=== PATIENT | female | born 1960 | race Caucasian/White ===

== ENCOUNTER 2018-10-10 14:25 | Inpatient (IN) | payer BC ==
[~2018-10-10] VITALS: Ht 165.1 cm; Wt 61.4 kg
[2018-10-10] MEDS ORDERED: CALC1TAB30 PO (14:34)
[2018-10-10] MEDS ORDERED: BACT800T5 PO (14:34)
[2018-10-10] MEDS ORDERED: GNP250TA9 PO (14:34)
[2018-10-10] MEDS ORDERED: FLUO20CA19 PO (14:34)
[2018-10-10] MEDS ORDERED: CBD OIL SL (14:34)
[2018-10-10] MEDS ORDERED: CEPH500C PO (14:34)
[2018-10-10] MEDS ORDERED: WELLTAB38 PO (14:34)
[2018-10-10 15:22] LABS: BASO # 0.1 10^3/uL (0.0-0.2); BASO % 1.1 % (0.0-1.0); EOS # 0.2 10^3/uL (0.0-0.50); EOS % 2.9 % (0.0-3.0); HEMATOCRIT 33.9 % (36.0-47.0); HEMOGLOBIN 11.4 g/dl (12.0-15.5); LYMPH # 1.4 10^3/uL (1.5-4.5); LYMPH % 25.4 % (24.0-44.0); MEAN CORPUSCULAR HEMOGLOBIN 33.3 pg (27.0-33.0); MEAN CORPUSCULAR HGB CONC 33.6 g/dl (32.0-36.5); MEAN CORPUSCULAR VOLUME 99.1 fl (80.0-96.0); MONO # 0.8 10^3/uL (0.0-0.8); MONO % 13.7 % (0.0-5.0); NEUTROPHILS # 3.1 10^3/uL (1.8-7.7); NEUTROPHILS % 56.7 % (36.0-66.0); PLATELET COUNT, AUTOMATED 275 10^3/uL (150-450); RED BLOOD COUNT 3.42 10^6/uL (4.00-5.40); WHITE BLOOD COUNT 5.5 10^3/uL (4.0-10.0)
--- NOTE | 2018-10-10 15:36 | REP ---
Clinical: Trauma. Technique: AP, lateral, bilateral oblique and sunrise views. Findings: The osseous structures and joint spaces are intact and normal. There is no evidence for acute fracture or dislocation. No joint effusion is appreciated. Surrounding soft tissues are unremarkable. No subcutaneous emphysema or radiodense foreign body. Impression: Normal examination. Electronically Signed by Eduard Moreno MD 10/10/2018 03:28 P
[2018-10-10 15:38] LABS: BLOOD UREA NITROGEN 15 MG/DL (7-18); C REACTIVE PROTEIN QUANTITATIV 6.08 MG/DL (0.00-0.30); CARBON DIOXIDE LEVEL 24 MEQ/L (21-32); CHLORIDE LEVEL 105 MEQ/L (98-107); CREATININE FOR GFR 1.15 MG/DL (0.55-1.30); GLOMERULAR FILTRATION RATE 52.2 (>51); GLUCOSE, FASTING 88 MG/DL (70-100); POTASSIUM SERUM 3.9 MEQ/L (3.5-5.1); SODIUM LEVEL 138 MEQ/L (136-145)
--- NOTE | 2018-10-10 15:38 | REP ---
Clinical: Left knee pain and swelling. Technique: Neutral and frog lateral views of the left hip. Findings: Evidence for left hip arthroplasty with orthopedic hardware in satisfactory position. No acute fracture dislocation. Impression: No acute fracture or dislocation. Electronically Signed by Eduard Moreno MD 10/10/2018 03:30 P
--- NOTE | 2018-10-10 15:54 | REP ---
Clinical: Left lower extremity pain and swelling . Technique: Ulrich scale and color Doppler evaluation using linear high frequency transducer. Findings: Ultrasound examination of the left lower extremity deep venous structures from the common femoral vein to the popliteal vein demonstrates normal compressibility flow and wave patterns in response to respiration and augmentation. There is no evidence for deep venous thrombosis. Left groin nodes measuring up to 2.7 x 0.9 x 1.2 cm are appreciated. Ultrasound along the anterior rocha at the site of insect bite demonstrates a subcutaneous complex hypoechoic collection measuring 4.3 x 0.8 x 2.9 cm. Impression: 1. No evidence for deep venous thrombosis. 2. Complex collection in the subcutaneous tissue below the level of the presumed insect bite may reflect phlegmon/forming abscess or possible hematoma if there was an associated traumatic event. Electronically Signed by Eduard Moreno MD 10/10/2018 03:46 P
[2018-10-10 16:11] LABS: ERYTHROCYTE SEDIMENTATION RATE 56 mm/hr (0-30)
[2018-10-10 17:59] LABS: RHEUMATOID FACTOR QUANT < 10.0 IU/ML (<15.0); URIC ACID 3.9 MG/DL (2.6-6.0)
[2018-10-10] MEDS ORDERED: MAGN400T PO (18:04)
--- NOTE | 2018-10-10 18:12 | HPEPDOC ---
General Date of Admission Oct 10, 2018 at 17:55 Date of Service: Oct 10, 2018 Chief Complaint The patient is a 57-year-old female who presented to the emergency room with complaints of left leg, warmth, redness and tenderness History of Present Illness Patient is a 57-year-old female with a past medical history of cerebrovascular accident secondary to control pills 2008 who presented to the emergency room after she experienced progressive warmth, redness and swelling of her left leg. Patient reports that last Friday she was working in the garden on her knees and that evening she began to experience left knee pain. Patient noted that she began to progressively experience worsening redness, warmth and tenderness. She ultimately went to urgent care on Friday where she had received cephalexin and Bactrim. At that time, she noted to have a temperature of 100.4 Fahrenheit Despite remaining compliant with antibiotic therapy, patient continued to experience worsening redness, warmth and tenderness and came to the emergency room for further evaluation. Patient denies any fevers or chills. Patient denies any drainage from the site. She denies any bug bites. Patient has full range of motion of her knee and her ankle. Patient denies chest pain, shortness of breath, cough, headache, nausea, vomiting, abdominal pain, constipation, diarrhea or discomfort with urination. Patient reports her weight has been consistent in her appetite has been normal. Home Medications Scheduled Bupropion HCl (Wellbutrin Xl) 150 Mg Tab.er.24h, 150 MG PO DAILY, (Reported) Calcium Carbonate/Vitamin D3 (Calcium 500-Vit D3 200 Caplet) 1 Each Tablet, 1 TAB PO DAILY, (Reported) Cannabidiol (Cbd Oil) Btl, 1 DOSE SL ASDIRECTED, (Reported) Cephalexin (Cephalexin) 500 Mg Capsule, 500 MG PO QID, (Reported) FILLED 10/06/18 X 10 DAY SUPPLY Fluoxetine Hcl (Fluoxetine HCl) 20 Mg Capsule, 20 MG PO DAILY, (Reported) Magnesium Oxide (Magnesium Oxide) 400 Mg Tablet, 400 MG PO DAILY, (Reported) Sulfamethoxazole/Trimethoprim (Bactrim Ds Tablet) 1 Each Tablet, 1 TAB PO BID, (Reported) Allergies Coded Allergies: Penicillins (Verified Allergy, Unknown, RASH, 10/10/18) Past Medical History Medical History Cerebrovascular accident secondary to control pills in 2008 Surgical History Left total hip arthroplasty 2004 2 Closure of patent foramen ovale with a mesh in 2009 at [facility] in [place] Family History - Mother and father are both and had a history of hypertension Social History - Denies the use of tobacco or illicit drugs; patient reports social alcohol use - Denies recent travel or sick contacts - Lives in [place] - Occupation; day care aide Review of Systems Other systems 10 point review of systems complete, all negative otherwise stated in HPI Vital Signs - Vitals: BP 137/102, HR 78, RR 18, Sat 99%RA, Temp 98.3F - General: Lying in bed, No acute distress, Speaking in full sentences, AAOx3 - HEENT: NC, AT, PERRLA, EOMI - CVS: RRR, +S1S2, - Murmurs / rubs / gallops - Lungs: Fair air entry bilaterally, No appreciable wheezing / rales / rhonchi - Abdomen: Soft, Non-distended, Non-tender - Extremities: No lower extremity edema, No calf tenderness - Neuro: No focal motor or sensory deficit - Skin: Left leg with warmth, erythema and tenderness, no drainage noted Laboratory Data Labs 24H Laboratory Tests 2 10/10/18 15:17: Immature Granulocyte % (Auto) 0.2, White Blood Count 5.5, Red Blood Count 3.42L, Hemoglobin 11.4L, Hematocrit 33.9L, Mean Corpuscular Volume 99.1H, Mean Corpuscular Hemoglobin 33.3H, Mean Corpuscular Hemoglobin Concent 33.6, Red Cell Distribution Width 12.0, Platelet Count 275, Neutrophils (%) (Auto) 56.7, Lymphocytes (%) (Auto) 25.4, Monocytes (%) (Auto) 13.7H, Eosinophils (%) (Auto) 2.9, Basophils (%) (Auto) 1.1H, Neutrophils # (Auto) 3.1, Lymphocytes # (Auto) 1.4L, Monocytes # (Auto) 0.8, Eosinophils # (Auto) 0.2, Basophils # (Auto) 0.1, Nucleated Red Blood Cells % (auto) 0.0, Erythrocyte Sedimentation Rate 56H, Anion Gap 9, Glomerular Filtration Rate 52.2, Uric Acid 3.9, Blood Urea Nitrogen 15, Creatinine 1.15, Sodium Level 138, Potassium Level 3.9, Chloride Level 105, Carbon Dioxide Level 24, Calcium Level 9.0, C-Reactive Protein, Quantitative 6.08H, Rheumatoid Factor < 10.0 CBC/BMP Laboratory Tests 10/10/18 15:17 Red Blood Count 3.42 L, Mean Corpuscular Volume 99.1 H, Mean Corpuscular Hemoglobin 33.3 H, Mean Corpuscular Hemoglobin Concent 33.6, Red Cell Dis tribution Width 12.0, Neutrophils (%) (Auto) 56.7, Lymphocytes (%) (Auto) 25.4, Monocytes (%) (Auto) 13.7 H, Eosinophils (%) (Auto) 2.9, Basophils (%) (Auto) 1.1 H, Neutrophils # (Auto) 3.1, Lymphocytes # (Auto) 1.4 L, Monocytes # (Auto) 0.8, Eosinophils # (Auto) 0.2, Basophils # (Auto) 0.1, Calcium Level 9.0 Microbiology Microbiology 10/10/18 Blood Culture, Received Pending 10/10/18 Blood Culture, Received Pending Plan / VTE VTE Prophylaxis Ordered?: Yes Plan Plan Left leg, warmth, redness and tenderness - likely 2/2 left leg cellulitis - Patient presented to the emergency room after failing antibiotic therapy for her left leg cellulitis - Aged indicated that she began experiencing symptoms since Friday; and had started antibiotics on Friday - Remains afebrile and hemodynamically stable - No significant leukocytosis; elevation of CRP - Blood cultures pending; will check MRSA screen - Duplex ultrasound is negative for any blood clots; x-rays are negative for any acute findings - Will get CT of her left lower extremity to evaluate for joint involvement - Will start Ceftaroline for MRSA coverage Hx of CVA (2008) - Had reported that this was secondary to control pills - Currently not on an anti-platelet therapy Mood disorder - Will resume home medications DVT prophylaxis - Will start Heparin INGRID MONROE MD Oct 10, 2018 18:12
[2018-10-10] MEDS ORDERED: GABA-843 PO (18:15)
[2018-10-10] MEDS ORDERED: MAPA25TA PO (18:16)
[2018-10-10] MEDS ORDERED: ISOVUE-370 76% 100ML VIAL (Q9967) As Ordered ONE (18:21)
[2018-10-10] MEDS: NS 1,000 ML IV SCH (18:55)
[2018-10-10] MEDS: CEFTAROLINE FOSAMIL 600 MG in D5W MINI-BAG PLUS 50 ML IV SCH (19:56)
--- NOTE | 2018-10-10 19:56 | REPVR ---
EXAM: CT Left Lower Extremity With Contrast, Tibia and Fibula EXAM DATE/TIME: 10/10/2018 6:31 PM CLINICAL HISTORY: 57 years old, female; Cellulitis; Lower leg; Left; Additional info: L leg cellulitis TECHNIQUE: Imaging protocol: CT of the Left lower extremity with intravenous contrast was performed. Exam focused on the tibia and fibula. Coronal and sagittal reformatted images were created and reviewed. Radiation optimization: All CT scans at this facility use at least one of these dose optimization techniques: automated exposure control; mA and/or kV adjustment per patient size (includes targeted exams where dose is matched to clinical indication); or iterative reconstruction. Contrast material: ISOVUE 370; Contrast volume: 100 ml; Contrast route: IV; COMPARISON: CR Knee, complete LEFT 10/10/2018 3:22 PM FINDINGS: Bones/joints: No acute fracture or dislocation of the left lower extremity, as visualized. CT imaging of the left lower extremity was performed from the left knee to the left ankle. There is a minimal patellofemoral joint effusion. Soft tissues: There is soft tissue swelling of the left lower extremity. There is a loculated collection of fluid anterior to the anterior tibial tubercle and distal patellar tendon. This fluid collection measures approximately 2.0 x 0.7 x 3.8 cm. This is suggestive of an infrapatellar bursitis, although abscess is within the differential. Additional soft tissue swelling is seen anterior to the patella and patellar tendon. CT is suboptimal for the evaluation of ligaments, tendons, and menisci. Small fluid collections are identified adjacent to the popliteus muscle, typically representing ganglion cysts. No foci of gas are identified within the soft tissues of the left lower extremity. No abnormally enhancing mass is identified within the left lower extremity. IMPRESSION: 1. There is soft tissue swelling of the left lower extremity. 2. No acute fracture or dislocation of the left lower extremity, as visualized. 3. There is a loculated collection of fluid anterior to the anterior tibial tubercle and distal patellar tendon. This fluid collection measures approximately 2.0 x 0.7 x 3.8 cm. This is suggestive of an infrapatellar bursitis, although abscess is within the differential. Additional soft tissue swelling is seen anterior to the patella and patellar tendon. Clinical correlation is recommended. 4. Small fluid collections are identified adjacent to the popliteus muscle, typically representing ganglion cysts. 5. Additional findings described above. Electronically signed by: Theodore Delcid On 10/10/2018 19:56:17 PM
[2018-10-10 20:20] VITALS: BP 139/90
[2018-10-10] MEDS ORDERED: GABAPENTIN 300 MG CAP PO SCH (21:00)
[2018-10-10] MEDS: HEPARIN SOD (PORCINE) 5000 UNITS/ML VIAL SC SCH (22:12)
[2018-10-10] MEDS: ACETAMINOPHEN TAB 650MG DOSE (2X325MG) PO PRN (23:23)
[2018-10-10 23:49] VITALS: BP 133/83
[2018-10-11] MEDS: NS 1,000 ML IV SCH (04:16)
[2018-10-11] MEDS: HEPARIN SOD (PORCINE) 5000 UNITS/ML VIAL SC SCH (06:22)
[2018-10-11 07:55] LABS: BASO # 0.1 10^3/uL (0.0-0.2); BASO % 1.4 % (0.0-1.0); EOS # 0.2 10^3/uL (0.0-0.50); EOS % 5.2 % (0.0-3.0); HEMATOCRIT 32.5 % (36.0-47.0); LYMPH # 1.2 10^3/uL (1.5-4.5); LYMPH % 26.7 % (24.0-44.0); MEAN CORPUSCULAR HGB CONC 33.8 g/dl (32.0-36.5); MEAN CORPUSCULAR VOLUME 100.3 fl (80.0-96.0); MONO # 0.5 10^3/uL (0.0-0.8); MONO % 12.3 % (0.0-5.0); NEUTROPHILS # 2.4 10^3/uL (1.8-7.7); NEUTROPHILS % 54.2 % (36.0-66.0); PLATELET COUNT, AUTOMATED 269 10^3/uL (150-450); RED BLOOD COUNT 3.24 10^6/uL (4.00-5.40); WHITE BLOOD COUNT 4.4 10^3/uL (4.0-10.0)
[2018-10-11 08:00] VITALS: BP 134/89
[2018-10-11] MEDS: CEFTAROLINE FOSAMIL 600 MG in D5W MINI-BAG PLUS 50 ML IV SCH (08:06)
[2018-10-11 08:14] LABS: BLOOD UREA NITROGEN 10 MG/DL (7-18); C REACTIVE PROTEIN QUANTITATIV 4.58 MG/DL (0.00-0.30); CALCIUM LEVEL 8.7 MG/DL (8.5-10.1); CARBON DIOXIDE LEVEL 26 MEQ/L (21-32); CHLORIDE LEVEL 109 MEQ/L (98-107); CREATININE FOR GFR 1.01 MG/DL (0.55-1.30); GLOMERULAR FILTRATION RATE > 60.0 (>51); GLUCOSE, FASTING 96 MG/DL (70-100); MAGNESIUM LEVEL 2.3 MG/DL (1.8-2.4); POTASSIUM SERUM 4.2 MEQ/L (3.5-5.1); SODIUM LEVEL 139 MEQ/L (136-145)
[2018-10-11] MEDS ORDERED: MAGNESIUM OXIDE 400 MG TAB (MAG-OX) PO SCH (09:00)
[2018-10-11] MEDS ORDERED: buPROPion **XL** TABLET 150MG (WELLBUTRIN XL) PO SCH (09:00)
[2018-10-11] MEDS ORDERED: FLUoxetine 20 MG CAP PO SCH (09:00)
[2018-10-11] MEDS: ACETAMINOPHEN TAB 650MG DOSE (2X325MG) PO PRN (09:46)
[2018-10-11] MEDS ORDERED: CEFD300CAP PO (10:10)
[2018-10-11] MEDS ORDERED: CALC1TAB30 PO (10:10)
[2018-10-11] MEDS ORDERED: DOXY-350 PO (10:10)
--- NOTE | 2018-10-11 10:19 | DS.PDOC ---
Discharge Summary General Date of Admission Oct 10, 2018 at 17:55 Date of Discharge 10/11/2018 Discharge Summary PROCEDURES PERFORMED DURING STAY: [None]. ADMITTING DIAGNOSES / DISCHARGE DIAGNOSES: Left leg, warmth, redness and tenderness - likely 2/2 left leg cellulitis / bursitis, less likely 2/2 abscess Hx of CVA (2008) Mood disorder DVT prophylaxis COMPLICATIONS/CHIEF COMPLAINT: Left leg warmth / tenderness / swelling HISTORY OF PRESENT ILLNESS: Patient is a 57-year-old female with a past medical history of cerebrovascular accident secondary to control pills 2008 who presented to the emergency room after she experienced progressive warmth, redness and swelling of her left leg. Patient reports that last Friday she was working in the garden on her knees and that evening she began to experience left knee pain. Patient noted that she began to progressively experience worsening redness, warmth and tenderness. She ultimately went to urgent care on Friday where she had received cephalexin and Bactrim. At that time, she noted to have a temperature of 100.4 Fahrenheit. Despite remaining compliant with antibiotic therapy, patient continued to experience worsening redness, warmth and tenderness and came to the emergency room for further evaluation. Patient was admitted to hospitalist service for further evaluation and treatment HOSPITAL COURSE: Left leg, warmth, redness and tenderness - likely 2/2 left leg cellulitis - Patient presented to the emergency room after failing antibiotic therapy for her left leg cellulitis - Aged indicated that she began experiencing symptoms since Friday; and had started antibiotics on Friday - Remains afebrile and hemodynamically stable - No significant leukocytosis; elevation of CRP - Blood cultures pending; will check MRSA screen - Duplex ultrasound is negative for any blood clots; x-rays are negative for any acute findings - CT of her left lower extremity 10/10: 1. There is soft tissue swelling of the left lower extremity. 2. No acute fracture or dislocation of the left lower extremity, as visualized. 3. There is a loculated collection of fluid anterior to the anterior tibial tubercle and distal patellar tendon. This fluid collection measures approximately 2.0 x 0.7 x 3.8 cm. This is suggestive of an infrapatellar bursitis, although abscess is within the differential. Additional soft tissue swelling is seen anterior to the patella and patellar tendon. Clinical correlation is recommended. 4. Small fluid collections are identified adjacent to the popliteus muscle, typically representing ganglion cysts. 5. Additional findings described above. - Orthopedic surgery was consulted; no interventions planned at this time - Will discharge with Cefdinir and Doxycycline; s/p Ceftaroline - will continue for completion of antibiotic course - Will have outpatient follow up with PCP / Orthopedic surgery within 7 days Hx of CVA (2008) - Had reported that this was secondary to control pills - Currently not on an anti-platelet therapy Mood disorder - c/w home medications DVT prophylaxis - c/w Heparin DISCHARGE MEDICATIONS: Please see below. ALLERGIES: Please see below. PHYSICAL EXAMINATION ON DISCHARGE: Vitals (See below) General: Lying in bed, no acute distress, comfortable, AAOx3 HEENT: NC, AT CVS: RRR, +S1S2 Lungs: Fair air entry b/l, -w/r/r Abdomen: Soft, ND, NT Extremities: - Edema, - Calf tenderness Skin: Left leg erythema, warmth and tenderness has improved significantly; swelling below the left knee has improved compared to yesterday LABORATORY DATA: Please see below. ACTIVITY: [As tolerated]. DISCHARGE PLAN: Follow up with PCP locally and Dr. Abbasi within 7 days Remain compliant with treatment plan and medications Return to the ER if you experience any problems DISPOSITION: Home DISCHARGE CONDITION: [Stable]. TIME SPENT ON DISCHARGE: 35 minutes Vital Signs/I&Os Vital Signs Date Time Temp Pulse Resp B/P (MAP) Pulse Ox O2 Delivery O2 Flow Rate FiO2 10/11/18 08:00 97.7 67 14 134/89 (104) 98 10/10/18 17:25 Room Air I&O- Last 24 Hours up to 6 AM 10/11/18 06:00 Intake Total 2340 ml Output Total 900 ml Balance 1440 ml Laboratory Data Labs 24H Laboratory Tests 2 10/10/18 15:17: Immature Granulocyte % (Auto) 0.2, White Blood Count 5.5, Red Blood Count 3.42L, Hemoglobin 11.4L, Hematocrit 33.9L, Mean Corpuscular Volume 99.1H, Mean Corpuscular Hemoglobin 33.3H, Mean Corpuscular Hemoglobin Concent 33.6, Red Cell Distribution Width 12.0, Platelet Count 275, Neutrophils (%) (Auto) 56.7, Lymphocytes (%) (Auto) 25.4, Monocytes (%) (Auto) 13.7H, Eosinophils (%) (Auto) 2.9, Basophils (%) (Auto) 1.1H, Neutrophils # (Auto) 3.1, Lymphocytes # (Auto) 1.4L, Monocytes # (Auto) 0.8, Eosinophils # (Auto) 0.2, Basophils # (Auto) 0.1, Nucleated Red Blood Cells % (auto) 0.0, Erythrocyte Sedimentation Rate 56H, Anion Gap 9, Glomerular Filtration Rate 52.2, Uric Acid 3.9, Blood Urea Nitrogen 15, Creatinine 1.15, Sodium Level 138, Potassium Level 3.9, Chloride Level 105, Carbon Dioxide Level 24, Calcium Level 9.0, C-Reactive Protein, Quantitative 6.08H, Rheumatoid Factor < 10.0 10/11/18 07:37: Immature Granulocyte % (Auto) 0.2, White Blood Count 4.4, Red Blood Count 3.24L, Hemoglobin 11.0L, Hematocrit 32.5L, Mean Corpuscular Volume 100.3H, Mean Corpuscular Hemoglobin 34.0H, Mean Corpuscular Hemoglobin Concent 33.8, Red Cell Distribution Width 12.0, Platelet Count 269, Neutrophils (%) (Auto) 54.2, Lymphocytes (%) (Auto) 26.7, Monocytes (%) (Auto) 12.3H, Eosinophils (%) (Auto) 5.2H, Basophils (%) (Auto) 1.4H, Neutrophils # (Auto) 2.4, Lymphocytes # (Auto) 1.2L, Monocytes # (Auto) 0.5, Eosinophils # (Auto) 0.2, Basophils # (Auto) 0.1, Nucleated Red Blood Cells % (auto) 0.0, Anion Gap 4L, Glomerular Filtration Rate > 60.0, Blood Urea Nitrogen 10, Creatinine 1.01, Sodium Level 139, Potassium Level 4.2, Chloride Level 109H, Carbon Dioxide Level 26, Calcium Level 8.7, C- Reactive Protein, Quantitative 4.58H, Magnesium Level 2.3 CBC/BMP Laboratory Tests 10/10/18 15:17 Red Blood Count 3.42 L, Mean Corpuscular Volume 99.1 H, Mean Corpuscular Hemoglobin 33.3 H, Mean Corpuscular Hemoglobin Concent 33.6, Red Cell Distribution Width 12.0, Neutrophils (%) (Auto) 56.7, Lymphocytes (%) (Auto) 25.4, Monocytes (%) (Auto) 13.7 H, Eosinophils (%) (Auto) 2.9, Basophils (%) (Auto) 1.1 H, Neutrophils # (Auto) 3.1, Lymphocytes # (Auto) 1.4 L, Monocytes # (Auto) 0.8, Eosinophils # (Auto) 0.2, Basophils # (Auto) 0.1, Calcium Level 9.0 10/11/18 07:37 Red Blood Count 3.24 L, Mean Corpuscular Volume 100.3 H, Mean Corpuscular Hemoglobin 34.0 H, Mean Corpuscular Hemoglobin Concent 33.8, Red Cell Distribution Width 12.0, Neutrophils (%) (Auto) 54.2, Lymphocytes (%) (Auto) 26.7, Monocytes (%) (Auto) 12.3 H, Eosinophils (%) (Auto) 5.2 H, Basophils (%) ( Auto) 1.4 H, Neutrophils # (Auto) 2.4, Lymphocytes # (Auto) 1.2 L, Monocytes # (Auto) 0.5, Eosinophils # (Auto) 0.2, Basophils # (Auto) 0.1, Calcium Level 8.7 Microbiology Microbiology 10/10/18 Blood Culture, Received Pending 10/10/18 Blood Culture, Received Pending 10/10/18 MRSA Screen, Received Pending Discharge Medications Scheduled Acetaminophen/Diphenhydramine (Mapap Pm Caplet) 1 Each Tablet, 1 TAB PO QHS, (Reported) Bupropion HCl (Wellbutrin Xl) 150 Mg Tab.er.24h, 150 MG PO DAILY, (Reported) Calcium Carbonate/Vitamin D3 (Calcium 500-Vit D3 200 Caplet) 1 Each Tablet, 1 TAB PO DAILY Stop taking until off antibiotics Cannabidiol (Cbd Oil) Btl, 1 DOSE SL ASDIRECTED, (Reported) Cefdinir (Cefdinir) 300 Mg Capsule, 1 CAP PO BID Doxycycline Monohydrate (Doxycycline) 100 Mg Capsule, 1 CAP PO BID Fluoxetine Hcl (Fluoxetine HCl) 20 Mg Capsule, 20 MG PO DAILY, (Reported) Gabapentin (Gabapentin) 300 Mg Capsule, 300 MG PO QHS, (Reported) Magnesium Oxide (Magnesium Oxide) 400 Mg Tablet, 400 MG PO DAILY, (Reported) Allergies Coded Allergies: Penicillins (Verified Allergy, Unknown, RASH, 10/10/18) INGRID MONROE MD Oct 11, 2018 10:19
--- NOTE | 2018-10-11 14:04 | CR ---
DATE OF CONSULTATION: 10/11/2018 INDICATION: Possible left leg abscess. HISTORY OF PRESENT ILLNESS: Radha is a very pleasant, 57-year-old female who was admitted to the hospital on 10/10/2018 for worsening cellulitis, prepatellar bursitis and possible abscess. She states her symptoms began a week prior on Friday. Other than doing some kneeling, there is no traumatic event. On Friday, she went to an urgent care center and was placed on Bactrim and Keflex. Initially her symptoms were improving, but then they started to worsen over the past two days. She developed some redness down towards her ankle and some hip pain and she became concerned the infection was spreading. The patient is currently on IV antibiotics with methicillin-resistant Staphylococcus aureus (MRSA) coverage. The patient states that since she has been admitted and on the IV antibiotics she does feel dramatically better. She is hoping to head back to [place] today. For the patient's full past medical history, past surgical history, medications, allergies, social history and review of systems, please see the admitting history and physical (H and P), which I personally reviewed. PHYSICAL EXAMINATION: This is a well appearing, middle aged female in no distress. She is alert and oriented times three. Neurologic: Appropriate mood and affect. Cardiovascular: 2+ posterior tibial (PT) pulse. Non labored breathing. Skin on the left knee is intact without open lesions. There is some localized cellulitis around the tibial tubercle. No other erythema seen extending distally or proximally. Musculoskeletal: The patient has full extension. She can flex to 135 degrees without knee pain. There is no groin pain with internal and external rotation. Painless ankle range of motion. There is no suprapatellar effusion. There is a localized pretibial bursitis at the tibial tubercle. The skin blanches with palpation. The area is tender to palpation, however, there is no fluctuance, no signs of abscess. Calf is soft and nontender. She has an intact neurovascular exam distally. I did review the CAT scan and x-rays previously obtained. I agree there is a localized fluid collection just anterior to the tibial tubercle. No conclusive evidence of abscess formation. CT scan was consistent with a pretibial bursitis. LABS: The patient had C-reactive protein of 6.08 on 10/10/2018 and it is down to 4.58 today on 10/11/2018. Her sed rate was 56 on admission. White count has gone down from 5.5 to 4.4. Lyme titer is pending. ASSESSMENT AND PLAN: Radha is a 57-year-old female with an improving cellulitis and infected pretibial bursitis. No role for infectious disease (ID) as this is not consistent with abscess. No role for aspiration at this point. Since she has been on three different antibiotics, cultures will not yield anything. Also carries the risk of a draining sinus tract. My recommendation is for the patient to be transitioned to by mouth antibiotics per the admitting physician's discretion. Basically, she failed a combination of Keflex and Bactrim. She would need some other oral antibiotic that has improved coverage from that. As an orthopedic surgeon with limited experience with infectious disease, I am unable to give any specific recommendations, however, if there is any difficulty deciding on antibiotic regimen, I would highly recommend calling Dr. Carpio of the infectious disease team. I did discuss concerning signs for septic arthritis with the patient, to include effusion, worsening knee range of motion or high fever. I do think it is appropriate for her to be discharged if the hospitalist agrees. All the patient's questions were answered.
[2018-10-14 00:06] LABS: ANTINUCLEAR ANTIBODIES DIRECT Negative (Negative); Lyme Disease IgG/IgM Antibodie <0.91 ISR (0.00-0.90); Lyme Disease IgM Ab Quantitati <0.80 index (0.00-0.79)
== END 2018-10-11 10:55 | disposition home or self-care (01) | DRG 351 ==
LOC: M ED 14:25 → M ED INP 17:55 → M PED 20:05
PROVIDERS: ADMIT Internal Medicine; ATTEND Internal Medicine
DX: M70.52 Other bursitis of knee, left knee (principal); L03.116 Cellulitis of left lower limb; F39 Unspecified mood [affective] disorder; Z86.73 Personal history of transient ischemic attack (TIA), and cerebral infarction without residual deficits; Z79.899 Other long term (current) drug therapy; Z88.0 Allergy status to penicillin